=== PATIENT | male | born 1950 | race Caucasian/White ===

== ENCOUNTER 2020-11-14 09:41 | Emergency (ER) | payer MEDICARE, SELFPAY ==
--- NOTE | 2020-11-14 09:55 | DI.RAD.S_ITS ---
PROCEDURE: XR HIP W PEL IF DONE RT 2V INDICATIONS: fall with right hip pain TECHNIQUE: AP pelvis with lateral view(s) of the right hip(s). COMPARISON: None. FINDINGS: Bones: No fractures or dislocations. Pelvic ring appears intact. No suspicious bony lesions. Mild bilateral hip degenerative change. Soft tissues: The visualized bowel gas pattern is normal. No suspicious soft tissue calcifications. IMPRESSION: Mild bilateral hip degenerative change. No evidence acute bony abnormality of the pelvis and right hip If clinical suspicion and/or symptoms persist, further assessment with repeat plain films, or advanced imaging (e.g., CT, MRI, or bone scan) may be helpful for further assessment. Dictated by: Keenan Miller M.D. on 11/14/2020 at 10:30 Approved by: Keenan Miller M.D. on 11/14/2020 at 10:31
--- NOTE | 2020-11-14 09:55 | DI.RAD.S_ITS ---
PROCEDURE: XR LUMBAR SPINE 2-3V INDICATIONS: fall with low back pain TECHNIQUE: 3 views of the lumbar spine were acquired. COMPARISON: None. FINDINGS: Bones: 5 [id number] vertebrae are present. There is normal bony alignment. No vertebral body compression fractures. No suspicious bony lesions. Multilevel degenerative disc space loss. Multilevel facet hypertrophy. Prominent posterior osteophyte at L2-L3. Suspect canal stenosis. Soft tissues: Overlying bowel gas pattern is normal. No suspicious soft tissue calcifications. IMPRESSION: Multilevel degenerative disc disease. Multilevel facet hypertrophy. Suspect canal stenosis at L2-L3. No evidence acute bony abnormality of the lumbar spine. If clinical suspicion and/or symptoms persist, further assessment with repeat plain films, or advanced imaging (e.g., CT, MRI, or bone scan) may be helpful for further assessment. Dictated by: Keenan Miller M.D. on 11/14/2020 at 10:31 Approved by: Keenan Miller M.D. on 11/14/2020 at 10:32
[2020-11-14 09:56] VITALS: BP 146/68; PULSE 64; RESP 16; TEMP 36.4; O2SAT 97; BMI 24.4
--- NOTE | 2020-11-14 10:01 | ED_ITS ---
HPI - Back Pain/Injury General Chief Complaint: Back Pain/Injury Stated Complaint: pain from back down right leg Time Seen by Provider: 11/14/20 09:42 Source: patient Mode of arrival: Ambulatory Limitations: no limitations History of Present Illness HPI Narrative: 70-year-old male smoker without contributory medical history presents with a chief complaint of ongoing low back pain for the past month. His initial injury occurred when he was caring a heavy object and then slipped on the wet grass and landed on his buttocks. Over the next few days he developed significant right lower back pain with radiation down his right leg. The pain is worse when he moves and improves with rest. He denies any numbness, tingling or weakness. He denies any footdrop. He denies any numbness in his groin or trouble controlling bowel or bladder. He has seen his chiropractor a few times and had minimal relief. He has seen an outside facility and was prescribed 30 Vicodin which seemed to help but are now gone. MD Complaint: back pain Onset (ago): week(s) Duration: constant Similar Symptoms Previously: No Location: lumbar spine Severity: moderate Quality: sharp and stabbing Radiation: right leg Relieving factors: immobilization Exacerbating factors: movement and walking Context: fall Associated symptoms: denies other symptoms Treatments prior to arrival: other medications Related Data Previous Rx's Medication Instructions Recorded cyclobenzaprine 10 mg PO TID PRN #14 tab 11/14/20 hydrocodone-acetaminophen 1 tab PO Q4-6H PRN #10 tab 11/14/20 ketorolac 10 mg PO Q6H PRN #14 tab 11/14/20 prednisone See Rx Instructions .ROUTE 11/14/20 .COMPLEX #30 tab Allergies Allergy/AdvReac Type Severity Reaction Status Date / Time INGREDIENT: NKA - NO KNOWN Allergy Unknown Uncoded 02/26/18 12:09 ALLERGIES Review of Systems Constitutional Constitutional: Denies chills, Denies fatigue, Denies fever(s), Denies frequent falls, Denies lethargy and Denies weakness Eyes Eyes: Denies change in vision, Denies eye discharge, Denies irritation and Denies loss of vision ENT Ears, Nose, Mouth, and Throat: Denies change in voice, Denies dizziness, Denies neck pain, Denies sore throat and Denies throat swelling Cardiovascular Cardiovascular: Denies chest pain, Denies irregular heart rhythm, Denies lightheadedness, Denies palpitations, Denies dyspnea, Denies dyspnea on exertion and Denies orthopnea Respiratory Respiratory: Denies cough, Denies dyspnea, Denies dyspnea on exertion and Denies wheezing Gastrointestinal Gastrointestinal: Denies abdominal pain, Denies change in bowel habits, Denies diarrhea, Denies nausea and Denies vomiting Musculoskeletal Musculoskeletal: Reports back pain, Denies neck pain and Denies numbness Integumentary/Breasts Skin/Breast: Denies pruritus, Denies erythema, Denies rash and Denies wounds Neurologic Neurologic: Denies behavioral changes, Denies confusion, Denies dizziness, Denies frequent falls, Denies loss of vision, Denies numbness and Denies weakness Psychiatric Psychiatric: Denies anxiety, Denies behavioral changes, Denies confusion, Denies depression, Denies homicidal ideation and Denies suicidal ideation Endocrine Endocrine: Denies fatigue, Denies flushing and Denies palpitations Hematologic/Lymphatic Hematologic/Lymphatic: Denies easy bruising Allergic/Immunologic Allergic/Immunologic: Denies urticaria, Denies throat swelling and Denies wheezing Patient History Social History Smoking Status: Current every day smoker Smoking Status: Current every day smoker alcohol intake frequency: 0-2 drinks per day Substance Use Type: does not use Exam Narrative Exam Narrative: GEN: AOx3 and in mild distress EYES: Pupils are equal, round, and reactive to light and accommodation. Extraoccular muscles are intact bilaterally. There is no subconjunctival hemorrhage or exudate. CHEST: Lungs are clear to auscultation bilaterally and free of wheezes, rales, or rhonchi. Heart rate is regular rhythm, there are no murmurs, clicks, rubs, or gallops. There is no chest wall tenderness. ABD: Abdomen is soft and nontender. There is no guarding or rebound. Bowel sounds are normal in all 4 quadrants. There is no mass or organomegaly. BACK: devil tender but free of any obvious external abnormalities. Patient exam notes decreased range of motion and muscle spasm, but no CVA tenderness, or vertebral point tenderness. There are no symptoms of cauda equina such as saddle anesthesia, and decreased reflexes, decreased sensation or strength. EXT: Full painless ROM of all extremities with no loss of sensation or strength. No shortening or external rotation. No pain with passive or active range of motion to the right hip including internal, external rotation, slight increased pain in low back with axial loading. SKIN: Warm, pink, and dry. No erythema or rash Initial Vital Signs Initial Vital Signs: Vital Signs Temperature 97.5 F L 11/14/20 09:56 Pulse Rate 64 11/14/20 09:56 Respiratory Rate 16 11/14/20 09:56 Blood Pressure 146/68 H 11/14/20 09:56 Pulse Oximetry 97 11/14/20 09:56 Course Orders Ordered: ED Orders 11/14/20 09:55 XR hip w pel if done RT 2V Stat XR lumbar spine 2-3V Stat Vital Signs Vital signs: Vital Signs - 8 hr 11/14/20 09:56 11/14/20 11:01 Temperature 97.5 F L Pulse Rate 64 61 Respiratory Rate 16 16 Blood Pressure 146/68 H 132/62 Pulse Oximetry 97 95 MDM - Back Pain/Injury Imaging Data Hip: Radiologist's Impression: [address] [id number] ReportSigned Patient: Edwin Bermudez GMR#: [id number]: 2Acct:[id number]/Sex: 70 / MDate of Service: 11/14/20Loc: EDAccession Number: [id number] Procedure: XR hip w pel if done RT 2V Ordering Provider: Melo Sanchez D.O. PROCEDURE: XR HIP W PEL IF DONE RT 2V INDICATIONS: fall with right hip pain TECHNIQUE: AP pelvis with lateral view(s) of the right hip(s). COMPARISON: None. FINDINGS: Bones: No fractures or dislocations. Pelvic ring appears intact. No s uspicious bony lesions. Mild bilateral hip degenerative change. Soft tissues: The visualized bowel gas pattern is normal. No suspicious soft tissue calcifications. IMPRESSION: Mild bilateral hip degenerative change. No evidence acute bony abnormality of the pelvis and right hip If clinical suspicion and/or symptoms persist, further assessment with repeat plain films, or advanced imaging (e.g., CT, MRI, or bone scan) may be helpful for further assessment. Dictated by: Keenan Miller M.D. on 11/14/2020 at 10:30 Approved by: Keenan Miller M.D. on 11/14/2020 at 10:31 L spine: Radiologist's Impression: Edwin Bermudez 70 M [address] [id number] ReportSigned Patient: Edwin Bermudez GMR#: [id number]: 1950cct:[id number]/Sex: 70 / MDate of Service: 11/14/20Loc: EDAccession Number: [id number] Procedure: XR lumbar spine 2-3V Ordering Provider: Melo Sanchez D.O. PROCEDURE: XR LUMBAR SPINE 2-3V INDICATIONS: fall with low back pain TECHNIQUE: 3 views of the lumbar spine were acquired. COMPARISON: None. FINDINGS: Bones: 5 [id number] vertebrae are present. There is normal bony alignment. No vertebral body compression fractures. No suspicious bony lesions. Multilevel degenerative disc space loss. Multilevel facet hypertrophy. Prominent posterior osteophyte at L2-L3. Suspect canal stenosis. Soft tissues: Overlying bowel gas pattern is normal. No suspicious soft tissue calcifications. IMPRESSION: Multilevel degenerative disc disease. Multilevel facet hypertrophy. Suspect canal stenosis at L2-L3. No evidence acute bony abnormality of the lumbar spine. If clinical suspicion and/or symptoms persist, further assessment with repeat plain films, or advanced imaging (e.g., CT, MRI, or bone scan) may be helpful for further assessment. Dictated by: Keenan Miller M.D. on 11/14/2020 at 10:31 Approved by: Keenan Miller M.D. on 11/14/2020 at 10:32 [facility] Narrative Medical decision making narrative: Multiple etiologies of back pain considered including; Epidural abscess, cauda equina, mass occupying lesion, and other considered. No red flag findings suggesting cauda, epidural abscess or hematoma Discharge Plan Departure Patient Disposition: Home Clinical Impression: Acute lumbar radiculopathy Instructions: DI for Back Pain With Sciatica Activity Restrictions/Additional Instructions: *You have been diagnosed with [back pain with radiculopathy] *What to do: *Take medications as directed: Prescriptions were sent to [facility], here at the hospital, on your behalf. *Follow up with your primary care provider in 2-3 days, call for an appointment. Let them know you were seen in the Emergency Department and that we ask that you be seen in follow up. After taking the medications as directed they will re-evaluate and decide if the next step, whether it be physical therapy, MRI, referral to Orthopedics, etc *Return to ER if you should have any new, worsening or concerning symptoms worsening pain, weakness of your leg, loss of control of bowel or bladder, other bothersome symptoms Prescriptions: New cyclobenzaprine 10 mg tablet 10 mg PO TID PRN (Reason: muscle spasm) Qty: 14 RF: 0 prednisone 10 mg tablet See Rx Instructions .ROUTE .COMPLEX Qty: 30 RF: 0 hydrocodone-acetaminophen 5-325 mg tablet 1 tab PO Q4-6H PRN (Reason: pain) Qty: 10 RF: 0 ketorolac 10 mg tablet 10 mg PO Q6H PRN (Reason: pain) Qty: 14 RF: 0 Referrals: Kristina Mahoney PA-C [Primary Care Provider] -
[2020-11-14 11:01] VITALS: BP 132/62; PULSE 61; RESP 16; O2SAT 95
== END 2020-11-14 11:05 | disposition home or self-care (01) ==
PROVIDERS: Emergency Provider Emergency Medicine; PCP Physician Assistant
DX: M54.16 Radiculopathy, lumbar region (principal); M25.551 Pain in right hip; W19.XXXA Unspecified fall, initial encounter
CPT/HCPCS: 72100; 73502; 99283